=== PATIENT | male | born 2000 | race Caucasian/White ===

== ENCOUNTER 2020-12-16 20:52 | Emergency (ER) | payer OTHER, SELFPAY ==
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
[2020-12-16 20:53] VITALS: BP 124/83; PULSE 89; RESP 18; TEMP 36.9; O2SAT 100
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
[2020-12-16] MEDS: KETOROLAC (*BKC) 60 MG/2 ML VIAL IM (21:32)
[2020-12-16 22:05] VITALS: BP 122/76; PULSE 88; RESP 18; TEMP 36.8; O2SAT 100
== END 2020-12-16 22:05 | disposition home or self-care (01) ==
PROVIDERS: Emergency Provider Nurse Practitioner; PCP Family Medicine
DX: S46.911A Strain of unspecified muscle, fascia and tendon at shoulder and upper arm level, right arm, initial encounter (principal); V18.4XXA Pedal cycle driver injured in noncollision transport accident in traffic accident, initial encounter; Y93.55 Activity, bike riding
CPT/HCPCS: 73030; 96372; 99283; J1885

== ENCOUNTER 2021-12-25 17:20 | Emergency (ER) | payer OTHER, SELFPAY ==
[2021-12-25 17:27] VITALS: BP 110/74; PULSE 73; RESP 16; TEMP 36.9; O2SAT 98
--- NOTE | 2021-12-25 17:36 | ED.SKABFB ---
HPI - Skin/Abscess/Foreign Bdy General Chief complaint: Skin/Abscess/Foreign Body Stated complaint: rash Time Seen by Provider: 12/25/21 17:27 Source: patient Mode of arrival: ambulatory Limitations: no limitations History of Present Illness HPI narrative: Patient presents today complaining of poison miranda rash to the groin, left arm, and left leg. States he noted the rash at 8 AM and has been worsening throughout the day today. Believes he contracted the rash while working on his house. He states he has tried 3 [id number] treatments prior to arrival without relief. Related Data Allergies Allergy/AdvReac Type Severity Reaction Status Date / Time No Known Drug Allergies Allergy Unknown Other Verified 07/22/21 15:44 Review of Systems Review of Systems: CONSTITUTIONAL: Denies body aches, fever, chills, or sweats. EYES: Denies visual changes, redness, or discharge. ENT: Denies rhinorrhea, congestion, sore throat, or otalgia. CARDIOVASCULAR: Denies chest pain, palpitations, or edema. RESPIRATORY: Denies cough or dyspnea. GASTROINTESTINAL: Denies abdominal pain, nausea, vomiting, or diarrhea. GENITOURINARY: Denies dysuria or hematuria. SKIN: Denies wounds.+ Rash MUSCULOSKELETAL: Denies back pain, joint pain, or myalgia. NEUROLOGIC: Denies headache, numbness, tingling, or weakness. PSYCH: Denies depression or anxiety. [facility] Past Medical History Medical History Seasonal asthma Surgical History Surgical History H/O inguinal hernia repair Social History Social History Smoking status: Never smoker Alcohol intake: current Alcohol use details: Occasional Substance use: never Comments At time of signature, I have reviewed and agree with nursing past medical, surgical, social and family history unless otherwise noted. Please see nursing chart for further information. There is no relevant family history pertinent to the presenting complaint Exam Narrative: GENERAL: Well-appearing, well-nourished, and in no acute distress. HEAD: Normocephalic, atraumatic. EYES: EOMI. No redness or drainage. Conjunctivae normal. ENT: Mucous membranes pink and moist. NECK: Normal AROM. CHEST: No respiratory distress. EXTREMITIES: Normal range of motion. No edema. SKIN: Warm, dry. Capillary refill normal. Normal skin turgor. Large patch of mildly erythematous tiny vesicles to the left antecubital fossa and a small patch to the left forearm. Patient also has a small patch to the left thigh. He reports patches to the groin, but this area was deferred to visualization. NEURO: No focal deficits. Alert and oriented x3. Gait steady. PSYCH: Normal affect. No signs of depression or anxiety. Course Course Level of Care: Express Care Visit Vital Signs Vital signs: Vital Signs Temperature 98.4 F 12/25/21 17:27 Pulse Rate 73 12/25/21 17:27 Respiratory Rate 16 12/25/21 17:27 Blood Pressure 110/74 12/25/21 17:27 Pulse Oximetry 98 12/25/21 17:27 Temperature 98.4 F 12/25/21 17:27 Pulse Rate 73 12/25/21 17:27 Respiratory Rate 16 12/25/21 17:27 Blood Pressure 110/74 12/25/21 17:27 Pulse Oximetry 98 12/25/21 17:27 Reviewed MDM - Skin/Abscess/Foreign Bdy Differential Diagnosis Differential diagnosis: Likely abscess of skin or subcutaneous tissue, cellulitis, eczema, insect bites, impetigo and contact dermatitis Critical Care Time Critical Care Time Critical Care Time: No Discharge Plan Discharge Clinical Impression: Poison miranda dermatitis Patient Disposition: Home, Self-Care Condition: Stable Instructions: Poison Miranda (ED) Additional Instructions: Take the prednisone as directed. Take Benadryl for itching and inflammation. Follow-up with your doctor with any concerns. Prescriptions: New
== END 2021-12-25 17:49 | disposition home or self-care (01) ==
PROVIDERS: Emergency Provider Nurse Practitioner; PCP Family Medicine
DX: L23.7 Allergic contact dermatitis due to plants, except food (principal); J45.909 Unspecified asthma, uncomplicated
CPT/HCPCS: 99213; G0463

== ENCOUNTER 2024-08-17 13:17 | Emergency (ER) | payer BC, SELFPAY ==
--- NOTE | 2024-08-17 13:20 | ED.URI ---
HPI - URI/Sore Throat General Chief Complaint: Upper Respiratory Infection Stated Complaint: BODY ACHES/HOT & COLD/SORE THROAT/COUGH/TIRED Time Seen by Provider: 08/17/24 13:20 Source: patient Mode of arrival: ambulatory Limitations: no limitations History of Present Illness HPI Narrative: Patient is a 24-year-old male who presents with body aches, fever, chills, sore throat, cough and fatigue since last night. Patient has taken DayQuil. Denies any nausea, vomiting, diarrhea. Related Data Allergies Allergy/AdvReac Type Severity Reaction Status Date / Time No Known Drug Allergies Allergy Unknown Other Verified 08/17/24 13:35 Review of Systems Review of Systems: All systems reviewed & are unremarkable except as noted in HPI and below Constitutional: Constitutional: Reports body ache(s), Reports chills, Reports fatigue, Reports fever(s), Denies headache(s), Denies malaise and Denies weakness Eyes: Eyes: Denies blurry vision, Denies itchy eyes and Denies loss of vision ENT: Denies otalgia, Denies headache(s), Denies nasal congestion, Denies sinus pain and Reports sore throat Cardiovascular: Cardiovascular: Denies chest pain, Denies irregular heart rhythm and Denies dyspnea Respiratory: Respiratory: Reports cough and Denies dyspnea Gastrointestinal: Gastrointestinal: Denies abdominal pain, Denies diarrhea, Denies nausea and Denies vomiting Musculoskeletal: Musculoskeletal: Denies back pain, Reports myalgias and Denies arthralgias Integumentary/Breasts: Skin/Breast: Denies pruritus and Denies rash Neurologic: Denies headache(s), Denies loss of vision and Denies weakness Psychiatric: Psychiatric: Reports no additional psychiatric complaints Endocrine: Endocrine: Denies fatigue Allergic/Immunologic: Allergic/Immunologic: Denies itchy eyes PMFSH Past Medical History Medical History Seasonal asthma Surgical History Surgical History H/O inguinal hernia repair Social History Social History Smoking status: Never smoker Alcohol intake: current Alcohol use details: Occasional Substance use: never Living arrangements: with family Comments At time of signature, agree with nursing past medical, surgical, social and family history. There is no relevant family history pertinent to the presenting complaint. Exam Const: General: cooperative, healthy appearing, comfortable, no acute distress and well nourished Nutritional Appearance: well nourished Orientation/consciousness: patient oriented x3 Limitations: no limitations HENMT: Head: normal to inspection, normocephalic and atraumatic Ears: hearing grossly normal bilaterally, external ears normal, TM's normal bilaterally, no periauricular adenopathy and Abnormal EAC present excessive cerumen bilateral Face/Nose/Sinus: Normal external nose present, Abnormal mucous membranes and turbinates present erythematous bilateral and diffuse, normal facial exam, sinuses nontender and face symmetric Face and sinus: normal facial exam, sinuses nontender and face symmetric Mouth: Yes Normal oral and palatal mucosa present, Yes lip normal, Yes tongue normal, Yes Normal salivary glands and ducts present, Yes oropharynx normal and Yes moist mucous membranes Teeth and gingiva: dentition normal Throat: posterior oropharynx normal, tonsils normal and uvula midline Eyes: General: appearance normal, both eyes and all related structures Alignment and Position: alignment normal and position normal Periorbital: periorbital findings normal Eyelids: eyelids normal Pupils: Equal, round and reactive pupils present Neck: Neck: normal visual inspection, full ROM, no lymphadenopathy and supple Chest: Chest palpation & inspection: normal inspection of the chest and normal palpation of entire chest wall Resp: Effort & Inspection: normal respiratory effort and able to speak in complete sentences Auscultation: clear to auscultation bilaterally, no crackles, no rales, no rhonchi and no wheezes Cardio: Rate: regular rate Rhythm: regular rhythm Heart sounds: S1 normal heart sound present and S2 normal heart sound present GI: Inspection: normal to inspection Skin: General skin exam: normal color and no rashes or lesions noted Neuro: General: patient oriented x3 and moves all extremities Cranial nerves: Yes Equal, round and reactive pupils present Speech: normal speech Gait exam (Neuro): Normal gait present Extrem: General: normal to inspection, full ROM and no edema Psych: Appearance: grossly normal and well kempt Mental Status: mental status grossly normal Speech and movement: Normal speech and movement present Affect: normal affect Attitude: cooperative Thought process: Normal thought process present Course Course Emergency Course: Discharge instructions reviewed with patient, as well as provided in writing per nursing staff. The instructions also include specific and strict return/GO TO THE ER as well as f/u information. All questions have been answered, and the patient deny any further questions with discharge and discharge plan. Portions of this record may have been created with voice recognition software Level of Care: Express Care Visit Vital Signs Vital signs: Vital Signs Temperature 36.3 C L 08/17/24 13:28 Pulse Rate 79 08/17/24 13:28 Respiratory Rate 18 08/17/24 13:28 Blood Pressure 104/73 08/17/24 13:28 Pulse Oximetry 97 08/17/24 13:28 Temperature 36.3 C L 08/17/24 13:28 Pulse Rate 79 08/17/24 13:28 Respiratory Rate 18 08/17/24 13:28 Blood Pressure 104/73 08/17/24 13:28 Pulse Oximetry 97 08/17/24 13:28 Reviewed MDM - URI/Sore Throat MDM Narrative Medical decision making narrative: Pt well hydrated appearing, in no respiratory distress, hemodynamically stable. Recommend supportive care. The patient is stable at time of discharge the clinical impression was discussed and the patient was given the opportunity to ask questions, which were addressed as completely as possible given the information available at present. Anticipatory guidance and return to care precautions were discussed and the importance of primary care follow-up was stressed and encouraged. The patient voiced understanding of the plan, indications to return, and the need for follow-up. Differential diagnosis considered: Velazquez virus, strep pharyngitis, allergic rhinitis, upper respiratory tract infection, sinusitis, rhinosinusitis, nasopharyngitis. viral pharyngitis, otitis media, otitis externa, otitis effusion, foreign body, cerumen impaction, viral syndrome, and influenza.? Exam findings show no acute concerns or changes; patient is non-toxic appearing and is in no distress.? Patient is appropriate for outpatient treatment and follow-up.? Medical Records Attestation: I reviewed the patient's medical records. Lab Data Attestation: I reviewed the patient's lab results. Labs: Lab Results 08/17/24 08/17/24 Range/Units 13:36 13:40 POC Influenza A Ag Positive (Negative) POC Influenza B Ag Negative (Negative) POC SARS CoV-2 Ag Negative (Negative) POC Grp A Strep Screen Negative (Negative) Discharge Plan Discharge Clinical Impression: Influenza Patient Disposition: Home, Self-Care Condition: Stable Instructions: Influenza (ED) Additional Instructions: Were positive for influenza A. Your Covid is negative Your symptoms are due to a viral illness, which is not treated with antibiotics. Viral symptoms can be present for up to a few weeks. -For fever/pain, you may take: Tylenol 650-1000mg by mouth every 4-6 hours. Do not exceed 4000mg in 24 hours. Advil (Ibuprofen) 600 mg by mouth every 6 hours. Do not exceed 2400mg in 24 hours. 8 AM: Tylenol 11 AM: Ibuprofen 2 PM: Tylenol 5 PM: Ibuprofen 8 PM: Tylenol 11 PM: Ibuprofen 2 AM: Tylenol 5 AM: Ibuprofen -Antihistamine medication such as Benadryl/Zyrtec at night and Claritin/Gisela during the day can help improve symptoms. -Use Flonase twice a day for 5 days then daily to help reduce the inflammation and dry up your sinuses. -You can also use Sudafed behind the pharmacy counter(12 or 24 hour). Be sure to drink plenty of water with these medications at least 8 ounces with every dose and it is important to drink 8 to 10 glasses of water per day. Water is a natural decongestant -Eat and drink things that are easy to swallow, like tea or soup, or popsicles. -Oral rinses such as: Salt water gargles and/or may use topical anesthetic (eg. Chloraseptic spray) or lozenges to relieve dryness or throat pain). -Frequent hand washing or hand counter sales person is one of the best ways to prevent spread of infection. -Using a vaporizer or humidifier at night will also help thin secretions and help with coughing up phlegm. -Follow up with primary care provider in 3-5 days if condition is not improving - For new or worsening symptoms go directly to the nearest ER Patient Language: Yakut Prescriptions: No Action prednisone 10 mg tablet See Rx Instructions .Route .COMPLEX Qty: 28 0RF Rx Instructions: 5 tabs daily x2 days,then 4 tabs daily x2 days,then 3 tabs daily x2 days,then 2 tabs daily x2 days Paxlovid 300 mg (150 mg x 2)-100 mg tablets,dose pack See Rx Instructions PO .COMPLEX Qty: 30 0RF Rx Instructions: take TWO 150 mg tablets of nirmatrelvir with ONE 100 mg tablet of ritonavir twice daily for 5 days PO DO NOT TAKE PREDNISONE WHILE ON THE MEDICATION Follow-up/Referrals: Reji Guzman MD [Physician] - 3 Days UNKNOWN,DOCTOR [Non-Staff] - Stand Alone Forms: Work/School Release IP Time of Disposition: 14:06
[2024-08-17 13:28] VITALS: BP 104/73; PULSE 79; RESP 18; TEMP 36.3; O2SAT 97
[2024-08-17 13:38] LABS: EDSTREPNEGPOS1 Negative (Negative)
[2024-08-17 13:42] LABS: EDCOVIDSCREEN Negative (Negative); EDINFLUASCREEN Positive (Negative); EDINFLUBSCREEN Negative (Negative)
== END 2024-08-17 14:10 | disposition home or self-care (01) ==
PROVIDERS: Emergency Provider Nurse Practitioner Family
DX: J11.1 Influenza due to unidentified influenza virus with other respiratory manifestations (principal); Z20.822 Contact with and (suspected) exposure to COVID-19
CPT/HCPCS: 87081; 87426; 87804; 87880; 99213; G0463

== ENCOUNTER 2024-12-24 08:08 | Emergency (ER) | payer BC, SELFPAY ==
[2024-12-24 08:31] VITALS: BP 109/80; PULSE 70; RESP 16; TEMP 36.1; O2SAT 100
--- NOTE | 2024-12-24 08:33 | ED.SKABFB ---
HPI - Skin/Abscess/Foreign Bdy General Chief complaint: Skin/Abscess/Foreign Body Stated complaint: RASH Time Seen by Provider: 12/24/24 08:20 Source: patient Mode of arrival: ambulatory Limitations: no limitations History of Present Illness HPI narrative: 24 yo M presents with poison miranda rash x 2 days. States spreading on his legs. In that past has had bad allergic reaction to poison miranda. Asking for IM steroid. all systems reviewed and negative except as noted above. Related Data Home Medications ?Medication ?Instructions ?Recorded ?Confirmed ?Last Taken ?Type dextroamphetamine-amphetamine ER PO 12/24/24 Unknown History 15 mg 24hr capsule,extend release Allergies Allergy/AdvReac Type Severity Reaction Status Date / Time No Known Drug Allergies Allergy Unknown Other Verified 12/24/24 08:29 Review of Systems Review of Systems: CONSTITUTIONAL: Denies fever, chills, or sweats. EYES: Denies visual changes, redness, or discharge. ENT: Denies rhinorrhea, congestion, sore throat, or otalgia. CARDIOVASCULAR: Denies chest pain, palpitations, or edema. RESPIRATORY: Denies cough or dyspnea. GASTROINTESTINAL: Denies abdominal pain, nausea, vomiting, or diarrhea. GENITOURINARY: Denies dysuria or hematuria. SKIN: Reports poison miranda rash with itching. MUSCULOSKELETAL: Denies back pain, joint pain, or myalgia. NEUROLOGIC: Denies headache, numbness, or weakness. PSYCHIATRIC: Denies anxiety or depression. All other systems reviewed are negative, except as documented in HPI. PMFSH Past Medical History Medical History Seasonal asthma Surgical History Surgical History H/O inguinal hernia repair Social History Social History Smoking status: Never smoker Alcohol intake: current Alcohol use details: Occasional Substance use: never Living arrangements: with family Comments At time of signature, agree with nursing past medical, surgical, social and family history. There is no relevant family history pertinent to the presenting complaint. Exam Narrative: GENERAL: This is a well-nourished, well-developed patient, in no apparent distress. HEAD: normocephalic, atraumatic. EYES: PERRL. Sclera clear/white. Vision is grossly intact. EARS: External ears normal NOSE: External nose normal NECK: Neck supple, non-tender without lymphadenopathy, masses or thyromegaly. CARDIOVASCULAR: Regular rate and rhythm without murmurs, gallops, or rubs. RESPIRATORY: Clear to auscultation. Breath sounds equal bilaterally. No wheezes, rales, or rhonchi. SKIN: warm, Dry, intact with erythematous fascicular rash to bilateral lower extremities involving ankles, lower legs and thighs., good texture and turgor. NEURO: awake, alert, and oriented to person, place and time. There were no obvious focal neurologic abnormalities. EXTREMITIES: No joint tenderness, effusion, or edema noted. Course Course Level of Care: [facility] Visit Vital Signs Vital signs: Vital Signs Temperature 36.1 C L 12/24/24 08:31 Pulse Rate 70 12/24/24 08:31 Respiratory Rate 16 12/24/24 08:31 Blood Pressure 109/80 12/24/24 08:31 Pulse Oximetry 100 12/24/24 08:31 Temperature 36.1 C L 12/24/24 08:31 Pulse Rate 70 12/24/24 08:31 Respiratory Rate 16 12/24/24 08:31 Blood Pressure 109/80 12/24/24 08:31 Pulse Oximetry 100 12/24/24 08:31 Reviewed MDM - Skin/Abscess/Foreign Bdy MDM Narrative Medical decision making narrative: Patient given IM Kenalog at [facility] as this is his preferred treatment for poison miranda. Also prescribed triamcinolone cream. Recommend an [id number] antihistamine daily. Patient is well-appearing, nontoxic. Differential Diagnosis Differential diagnosis: Likely contact dermatitis Discharge Plan Discharge Clinical Impression: Dermatitis due to plants, including poison miranda, sumac, and oak Patient Disposition: Home Condition: Stable Instructions: Poison Miranda (ED) Additional Instructions: You were given an intramuscular injection of a steroid today to help treat your poison miranda rash. Apply steroid cream sparingly to affected areas 2 to 3 times a day. Taking [id number] antihistamine daily such as Claritin or Zyrtec. Follow-up with your doctor if rash is not improving. Patient Language: Egyptian Prescriptions: New triamcinolone acetonide 0.1 % cream 1 applic topical BID Qty: 30 0RF No Action prednisone 10 mg tablet See Rx Instructions .Route .COMPLEX Qty: 28 0RF Rx Instructions: 5 tabs daily x2 days,then 4 tabs daily x2 days,then 3 tabs daily x2 days,then 2 tabs daily x2 days dextroamphetamine-amphetamine 15 mg capsule,extended release 24hr PO Paxlovid 300 mg (150 mg x 2)-100 mg tablets,dose pack See Rx Instructions PO .COMPLEX Qty: 30 0RF Rx Instructions: take TWO 150 mg tablets of nirmatrelvir with ONE 100 mg tablet of ritonavir twice daily for 5 days PO DO NOT TAKE PREDNISONE WHILE ON THE MEDICATION Follow-up/Referrals: PHYSICIAN,RADIO MECHANIC [Primary Care Provider] - Time of Disposition: 08:47
[2024-12-24] MEDS: TRIAMCINOLONE ACET INJ 40 MG/ML VIAL IM (08:39)
== END 2024-12-24 08:52 | disposition home or self-care (01) ==
PROVIDERS: Emergency Provider Nurse Practitioner Family
DX: L23.7 Allergic contact dermatitis due to plants, except food (principal); J45.909 Unspecified asthma, uncomplicated
CPT/HCPCS: 96372; 99213; G0463; J3301

== ENCOUNTER 2025-05-10 08:24 | Emergency (ER) | payer OTHER, SELFPAY ==
[2025-05-10 08:44] VITALS: BP 135/78; PULSE 85; RESP 16; TEMP 36.1; O2SAT 100
[2025-05-10 08:55] LABS: EDSTREPNEGPOS1 Negative (Negative)
--- NOTE | 2025-05-10 09:06 | ED_ITS ---
HPI - URI/Sore Throat General Chief Complaint: Upper Respiratory Infection Stated Complaint: Strep Symptoms Time Seen by Provider: 05/10/25 09:06 Source: patient Mode of arrival: ambulatory Limitations: no limitations History of Present Illness HPI Narrative: 25-year-old male presents with complaint of nasal congestion, postnasal drainage, sore throat, fatigue and body aches for 3 days. Symptoms improving. Continues to have sore throat, wanted to make sure he does not have strep. Patient taking [id number] magnesium, zinc, DayQuil and Mucinex to treat symptoms. All systems reviewed and negative except as noted above. Related Data Home Medications ?Medication ?Instructions ?Recorded ?Confirmed ?Last Taken ?Type dextroamphetamine-amphetamine ER 15 mg PO DAILY 05/10/25 Unknown History 15 mg 24hr capsule,extend release Allergies Allergy/AdvReac Type Severity Reaction Status Date / Time No Known Drug Allergies Allergy Unknown Other Verified 05/10/25 08:40 [facility] Past Medical History Medical History Seasonal asthma Surgical History Surgical History H/O inguinal hernia repair Social History Social History Smoking status: Never smoker Alcohol intake: current Alcohol use details: Occasional Substance use: never Living arrangements: with family Comments At time of signature, agree with nursing past medical, surgical, social and family history. There is no relevant family history pertinent to the presenting complaint. Exam Narrative: GENERAL: This is a well-nourished, well-developed patient, in no apparent distress. HEAD: normocephalic, atraumatic. EYES: PERRL. Sclera clear/white. Vision is grossly intact. EARS: External ears normal, auditory canals clear and without drainage, TMs normal without perforation. Hearing grossly intact. NOSE: External nose normal with no obvious nasal discharge, nares without redness, no rhinorrhea. THROAT: Mucous membranes moist, posterior pharynx clear. NECK: Neck supple, non-tender without lymphadenopathy, masses or thyromegaly. CARDIOVASCULAR: Regular rate and rhythm without murmurs, gallops, or rubs. RESPIRATORY: Clear to auscultation. Breath sounds equal bilaterally. No wheezes, rales, or rhonchi. SKIN: warm, Dry, intact with no suspicious lesions or rash, good texture and turgor. NEURO: awake, alert, and oriented to person, place and time. There were no obvious focal neurologic abnormalities. EXTREMITIES: No joint tenderness, effusion, or edema noted. Course Course Level of Care: Express Care Visit Vital Signs Vital signs: Vital Signs Temperature 36.1 C L 05/10/25 08:44 Pulse Rate 85 05/10/25 08:44 Respiratory Rate 16 05/10/25 08:44 Blood Pressure 135/78 05/10/25 08:44 Pulse Oximetry 100 05/10/25 08:44 Temperature 36.1 C L 05/10/25 08:44 Pulse Rate 85 05/10/25 08:44 Respiratory Rate 16 05/10/25 08:44 Blood Pressure 135/78 05/10/25 08:44 Pulse Oximetry 100 05/10/25 08:44 Reviewed MDM - URI/Sore Throat MDM Narrative Medical decision making narrative: Negative rapid strep. Strep culture pending. Patient is well-appearing, nontoxic. Recommend he continue [id number]-[id number] medications to treat symptoms. Differential Diagnosis Differential diagnosis: Likely upper respiratory infection, sinusitis, viral infection, influenza and pharyngitis Lab Data Labs: Lab Results 05/10/25 Range/Units 08:53 POC Grp A Strep Screen Negative (Negative) Discharge Plan Discharge Clinical Impression: Upper respiratory infection, viral Patient Disposition: Home Condition: Stable Instructions: Upper Respiratory Infection (ED) Additional Instructions: Your strep test was negative today. Your symptoms are viral and may last 7-10 days. Continue taking dbha-uqo-oibobha medications to treat her symptoms. Drink at least 64 oz water a day. See your primary care physician if symptoms are not improving. Patient Language: Frisian Prescriptions: No Action prednisone 10 mg tablet See Rx Instructions .Route .COMPLEX Qty: 28 0RF Rx Instructions: 5 tabs daily x2 days,then 4 tabs daily x2 days,then 3 tabs daily x2 days,then 2 tabs daily x2 days dextroamphetamine-amphetamine 15 mg capsule,extended release 24hr 15 mg PO DAILY triamcinolone acetonide 0.1 % cream 1 applic topical BID Qty: 30 0RF Paxlovid 300 mg (150 mg x 2)-100 mg tablets,dose pack See Rx Instructions PO .COMPLEX Qty: 30 0RF Rx Instructions: take TWO 150 mg tablets of nirmatrelvir with ONE 100 mg tablet of ritonavir twice daily for 5 days PO DO NOT TAKE PREDNISONE WHILE ON THE MEDICATION Follow-up/Referrals: PHYSICIAN,CONSTRUCTION CODE ADMINISTRATOR [Primary Care Provider, Internal Medicine] Time of Disposition: 09:12
== END 2025-05-10 09:13 | disposition home or self-care (01) ==
PROVIDERS: Emergency Provider Nurse Practitioner Family
DX: J06.9 Acute upper respiratory infection, unspecified (principal)
CPT/HCPCS: 87081; 87880; 99213; G0463